=== PATIENT | female | born 1955 | race Caucasian/White ===

== ENCOUNTER 2021-04-28 11:07 | Outpatient (CLI) | payer MEDICARE, BC | END 2021-04-28 11:08 | disposition home or self-care (01) | LOC: CSHMAMMO 11:07 | PROVIDERS: ATTEND Family Medicine | DX: Z12.31 Encounter for screening mammogram for malignant neoplasm of breast (principal); Z80.3 Family history of malignant neoplasm of breast | CPT/HCPCS: 77063; 77067 ==

== ENCOUNTER 2022-06-26 09:41 | Outpatient (CLI) | payer MEDICARE, BC | END 2022-06-26 09:42 | disposition home or self-care (01) | LOC: CSHMAMMO 09:41 | PROVIDERS: ATTEND Family Medicine | DX: Z12.31 Encounter for screening mammogram for malignant neoplasm of breast (principal); Z80.3 Family history of malignant neoplasm of breast | CPT/HCPCS: 77063; 77067 ==

== ENCOUNTER 2024-04-09 08:56 | Outpatient (CLI) | payer MEDICARE ==
[2024-04-09] MEDS ORDERED: Iopamidol 300 61% 100 ML VIAL FS ONE (10:52)
== END 2024-04-09 08:57 | disposition home or self-care (01) ==
LOC: CSHCT 08:56
PROVIDERS: ATTEND Family Medicine
DX: R16.1 Splenomegaly, not elsewhere classified (principal); E07.89 Other specified disorders of thyroid; N28.1 Cyst of kidney, acquired; E04.1 Nontoxic single thyroid nodule
CPT/HCPCS: 36415; 74170; 76536; 82565; Q9967